=== PATIENT | female | born 1945 | race Caucasian/White ===

== ENCOUNTER → 2018-06-29 | Outpatient (CLI) | payer MEDICARE ==
[~2018-06-29] MED LIST: ASPIRIN325 PO; GLUCOTROL10 MG PO; HYDROCODON-ACE1 EAC7 PO; LIPITOR40 MG PO; LOSARTAN POTAS100 MG PO; NAPROSYN500 MG PO; SERTRALINE HCL100 MG PO; TRAZODONE 150150 M1 PO; VITAMIN D1000 UNI1 PO; ZANTAC 150MG T150 M1 PO
== END ==
LOC: M.RAD 10:44
DX: Z88.8 Allergy status to other drugs, medicaments and biological substances (principal); M16.0 Bilateral primary osteoarthritis of hip; M25.562 Pain in left knee; Z88.0 Allergy status to penicillin

== ENCOUNTER → 2018-12-17 | Outpatient (CLI) | payer MEDICARE ==
[~2018-12-17] MED LIST changes: +DILTIAZEM ER PO; +VITAMIN D1000 UNI2 PO; +WELLBUTRIN 75 M75 M1 PO
== END ==
LOC: M.RAD 14:33
DX: M41.84 Other forms of scoliosis, thoracic region (principal); M48.04 Spinal stenosis, thoracic region; M46.04 Spinal enthesopathy, thoracic region; M47.816 Spondylosis without myelopathy or radiculopathy, lumbar region; M51.35 Other intervertebral disc degeneration, thoracolumbar region; M51.36 Other intervertebral disc degeneration, lumbar region

== ENCOUNTER → 2019-01-03 | Outpatient (CLI) | payer MEDICARE | LOC: M.PC 01:52 | DX: M47.816 Spondylosis without myelopathy or radiculopathy, lumbar region (principal); M51.36 Other intervertebral disc degeneration, lumbar region; M25.551 Pain in right hip; M79.651 Pain in right thigh ==

== ENCOUNTER → 2019-01-10 | Outpatient (CLI) | payer MEDICARE ==
[2019-01-10 11:34] LABS: ABSOLUTE BASOPHILS 0.1 thou/uL (0.0-0.2); ABSOLUTE EOSINOPHILS 0.1 thou/uL (0.0-0.7); ABSOLUTE LYMPHOCYTES 2.3 thou/uL (0.8-5.3); ABSOLUTE MONOCYTES 0.7 thou/uL (0.0-1.2); ABSOLUTE NEUTROPHILS 3.9 thou/uL (1.6-8.1); EOSINOPHILS 1.6 %; HEMATOCRIT 37.8 % (37.0-47.0); HEMOGLOBIN 12.9 gm/dL (12.0-15.0); MCH 30.7 pg (26.0-34.0); MCHC 34.1 g/dL (28.0-37.0); MCV 90.1 fL (80.0-100.0); MONOCYTES 9.5 %; MPV 7.4 fl. (7.2-11.1); NUCLEATED RBCS 0 /100WBC; PLATELET COUNT* 149 thou/uL (150-400); POLYS 54.9 %; RBC 4.19 mil/uL (4.20-5.00); RDW-CV 14.8 % (10.5-14.5); WBC 7.1 thou/uL (4.0-11.0)
[2019-01-10 11:47] LABS: ALBUMIN 3.8 g/dL (3.4-5.0); CALCIUM 8.6 mg/dL (8.5-10.1); CREATININE 0.9 mg/dL (0.6-1.3); POTASSIUM 4.4 mmol/L (3.5-5.1); TOTAL BILIRUBIN 0.4 mg/dL (<0.1-1.0); TOTAL PROTEIN 7.5 g/dL (6.4-8.2)
== END ==
LOC: M.CT 10:58
PROVIDERS: Internal Medicine
DX: K42.9 Umbilical hernia without obstruction or gangrene (principal); K57.30 Diverticulosis of large intestine without perforation or abscess without bleeding; M53.80 Other specified dorsopathies, site unspecified

== ENCOUNTER → 2019-01-19 | Outpatient (CLI) | payer MEDICARE ==
[2019-01-19] VITALS (20 sets, daily range): BP systolic 102–132; BP diastolic 53–84
[~2019-01-19] VITALS: Ht 165.1 cm; Wt 99.8 kg
[2019-01-19 12:54] LABS: HEMATOCRIT 38.1 % (37.0-47.0); HEMOGLOBIN 13.1 gm/dL (12.0-15.0); MCHC 34.4 g/dL (28.0-37.0); MCV 90.3 fL (80.0-100.0); MPV 7.6 fl. (7.2-11.1); NUCLEATED RBCS 0 /100WBC; PLATELET COUNT* 177 thou/uL (150-400); RBC 4.22 mil/uL (4.20-5.00); RDW-CV 14.9 % (10.5-14.5); WBC 7.6 thou/uL (4.0-11.0)
[2019-01-19 13:06] LABS: CALCIUM 9.3 mg/dL (8.5-10.1); POTASSIUM 4.3 mmol/L (3.5-5.1)
[2019-01-19 13:07] LABS: APTT 28.1 Seconds (25.0-31.3); INR 1.1
[2019-01-19 13:34] LABS: ABSOLUTE BASOPHILS 0.1 thou/uL (0.0-0.2); ABSOLUTE EOSINOPHILS 0.1 thou/uL (0.0-0.7); ABSOLUTE LYMPHOCYTES 2.2 thou/uL (0.8-5.3); ABSOLUTE MONOCYTES 0.2 thou/uL (0.0-1.2); ABSOLUTE NEUTROPHILS 5.1 thou/uL (1.6-8.1); PLATELET ESTIMATE ADEQUATE
--- NOTE | 2019-01-24 17:06 | PATH ---
[address] [address] PATHOLOGY RPT PROCEDURE Name: THALIA MADISON Room: [facility] Smith#: [id number] Admission: 01/19/19 Date of : 47 Discharge: Report #: [id number] Path Case #: [id number] [facility] Accession Number: [id number] . 01 Material submitted: . hip - LEFT ILIAC CREST BONE. Modifiers: left . 01 Clinical history: . Sclerotic bone mets; unknown primary. . 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 SEE COMMENT (CHERYL:pit; 01/24/2019) QTP 01/24/2019 1012 Local . 02 Comment: Seen within the stroma of the bone biopsy are aggregates of monotonous fairly small malignant cells showing prominent signet ring features. A panel of properly controlled immunohistochemical stains performed on A1 shows the following results, supporting the suspicion of breast lobular primary: CK7: Patchy positive CK20: Negative Estrogen receptor: Strong positive GCDFP: Negative Mammaglobin: Negative CDX2: Negative E-cadherin: Negative . Dr. Varma notified at approximately 1415 on 01/24/2019. Reviewed with Dr. Kiko Choi who agrees with the diagnosis. (CHERYL:pit; 01/24/2019) . 02 Electronically signed: . Thomas Pat MD, Pathologist NPI- [id number] . 01 Gross description: . The specimen is received in formalin, labeled "Thalia Madison, L iliac". The specimen is additionally labeled on the requisition as, "left iliac crest". Received are two cores of light soler bone measuring 0.5 and 1.3 cm in length, with an average diameter of 0.3 cm. The specimen is submitted entirely in cassette A1, following light decalcification. (CAA; 01/20/2019) QAC/QAC 01/20/[address] [place] [address] . 02 [place] [address] PATHOLOGY RPT PROCEDURE Name: THALIA MADISON Room: [facility] Smith#: [id number] Admission: 01/19/19 Date of : 47 Discharge: Report #: [id number] Path Case #: [id number] Pathologist provided ICD-10: C79.51 . 02 CPT . 206791, [id number], [id number], [id number] Specimen Comment: A courtesy copy of this report has been sent to [phone], [phone] Specimen Comment: [phone] Specimen Comment: Report sent to / DR VARMA Performed at: [address], [place], [place] [id number] MD Gerald Rose MD Phone: [phone] Performed at: 02 [facility] [address], [place], [place] [id number] MD Thomas Pat MD Phone: [phone]
== END | disposition home or self-care (01) ==
LOC: M.INT 12:11
PROVIDERS: Radiology Diagnostic Radiology
DX: M89.8X8 Other specified disorders of bone, other site (principal); I10 Essential (primary) hypertension; E11.9 Type 2 diabetes mellitus without complications; M19.90 Unspecified osteoarthritis, unspecified site; E78.5 Hyperlipidemia, unspecified; K21.9 Gastro-esophageal reflux disease without esophagitis; F32.9 Major depressive disorder, single episode, unspecified; F41.9 Anxiety disorder, unspecified; Z98.890 Other specified postprocedural states; Z98.51 Tubal ligation status; Z79.899 Other long term (current) drug therapy; Z90.711 Acquired absence of uterus with remaining cervical stump; Z90.710 Acquired absence of both cervix and uterus; Z88.0 Allergy status to penicillin; Z88.8 Allergy status to other drugs, medicaments and biological substances; Z79.01 Long term (current) use of anticoagulants

== ENCOUNTER → 2020-12-25 | Outpatient (CLI) | payer MEDICARE ==
[2020-12-25 11:08] LABS: ABSOLUTE BASOPHILS 0.1 thou/uL (0.0-0.2); ABSOLUTE EOSINOPHILS 0.1 thou/uL (0.0-0.7); ABSOLUTE LYMPHOCYTES 2.1 thou/uL (0.8-5.3); ABSOLUTE MONOCYTES 0.8 thou/uL (0.0-1.2); ABSOLUTE NEUTROPHILS 4.7 thou/uL (1.6-8.1); BASOPHILS 0.9 %; EOSINOPHILS 1.9 %; HEMATOCRIT 33.2 % (37.0-47.0); HEMOGLOBIN 11.4 gm/dL (12.0-15.0); LYMPHOCYTES 26.5 %; MCH 32.2 pg (26.0-34.0); MCHC 34.3 g/dL (28.0-37.0); MCV 93.7 fL (80.0-100.0); MONOCYTES 10.1 %; MPV 6.6 fl. (7.2-11.1); NUCLEATED RBCS 0 /100WBC; PLATELET COUNT* 258 thou/uL (150-400); POLYS 60.6 %; RBC 3.54 mil/uL (4.20-5.00); RDW-CV 20.9 % (10.5-14.5); WBC 7.8 thou/uL (4.0-11.0)
[2020-12-25 11:33] LABS: CALCIUM 8.7 mg/dL (8.5-10.1); DIRECT BILIRUBIN 0.1 mg/dL (<0.1-0.3); POTASSIUM 4.8 mmol/L (3.5-5.1); TOTAL BILIRUBIN 0.4 mg/dL (<0.1-1.0); TOTAL PROTEIN 6.9 g/dL (6.4-8.2)
[2020-12-25 11:38] LABS: ANISOCYTOSIS 1+; PLATELET ESTIMATE ADEQUATE
== END ==
LOC: M.CT 10:30
PROVIDERS: ATTEND Registered Nurse Diabetes Educator
DX: K57.31 Diverticulosis of large intestine without perforation or abscess with bleeding (principal); K42.9 Umbilical hernia without obstruction or gangrene; J43.8 Other emphysema; N28.89 Other specified disorders of kidney and ureter; E11.65 Type 2 diabetes mellitus with hyperglycemia; Z79.899 Other long term (current) drug therapy